=== PATIENT | male | born 1940 | race Caucasian/White ===

== ENCOUNTER 2017-05-18 11:31 | Day surgery (SDC) | payer OTHER ==
[2017-05-18] MEDS ORDERED: LR 1,000 ML IV ONE (12:23)
--- NOTE | 2017-05-18 12:26 | PDANEPAE ---
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 - Pulmonary History Hx COPD: No Hx Asthma/Reactive Airway Disease: No Hx Recent Upper Respiratory Infection: No Hx Oxygen in Use at Home: No Hx Sleep Apnea: Yes Sleep Apnea Screening Result - Last Documented: Positive - Neurologic History Hx Cerebrovascular Accident: No Hx Seizures: No Hx Dementia: No - Endocrine History Hx Diabetes: No Hypothyroid: No Hyperthyroid: No - Renal History Hx Renal Disorders: No - Liver History Hx Hepatic Disorders: No - Neurological & Psychiatric Hx Hx Neurological and Psychiatric Disorders: No - Cancer History Hx Cancer: No - Congenital Disorder History Hx Congenital Disorders: No - GI History GERD: mild Hx Gastrointestinal Disorders: No - Surgical History Prior Surgeries: EGD, ANE Review of Systems - Exercise capacity METS (RN): 4 METS ANE Patient History - Allergies Allergies/Adverse Reactions: Sulfa (Sulfonamide Antibiotics) Allergy (Verified 05/18/17 12:05) - Home Medications Home Medications: Atorvastatin Calcium 05/18/17 [Last Taken 05/17/17 22:00] Alyssa 05/18/17 [Last Taken 05/17/17] Lisinopril/Hctz 20/12.5MG 05/18/17 [Last Taken 05/17/17 22:00] Multivitamin 05/18/17 [Last Taken 05/17/17] [place] 3 500 Softgel 05/18/17 [Last Taken 05/17/17] VITAMIN D 05/18/17 [Last Taken 05/17/17] - NPO status NPO Since - Liquids (Date): 05/18/17 NPO Since - Liquids (Time): 10:00 NPO Since - Solids (Date): 05/17/17 NPO Since - Solids (Time): 21:00 - Anes Hx Anes Hx: no prior problems - Smoking Hx Smoking Status: Former smoker - Family Anes Hx Family Hx Anesthesia Complications: none ANE Labs/Vital Signs - Vital Signs Blood Pressure: 142/87 Heart Rate: 61 Respiratory Rate: 20 O2 Sat (%): 97 Height: 170.18 cm Weight: 84.302 kg ANE Physical Exam - Airway Neck exam: FROM Mallampati Score: Class 3 - Pulmonary Pulmonary: no respiratory distress - Cardiovascular Cardiovascular: regular rate and rhythym - ASA Status ASA Status: III ANE Anesthesia Plan Anesthesia Plan: GA w LMA
[2017-05-18] MEDS ORDERED: levOFLOXACIN 500 MG/DEXTROSE/100 ML BAG IV ONE (12:30)
[2017-05-18] MEDS ORDERED: PROPOFOL/EMULSION 500 MG/50 ML BOTTLE IV ONE (12:33)
[2017-05-18] MEDS ORDERED: INDOMETHACIN 50 MG SUPP PR PRN (12:35)
--- NOTE | 2017-05-18 12:35 | PDGENHP ---
History & Physical Chief Complaint: pancreatic cyst History of Present Illness: 76 year old male presents for evaluation of abnormal imaging. + panc cyst seen on imaging. Pertinent Past, Social, Family History: FaMHx: no hx of pancreatic cancer. SoHx : former smoker. Relevant Physical Exam: HEENT: anicteric. CV: RRR +s1s2 No m/r/g. Lungs: CTAB No w/r/r. Abd: soft, nt, + bs. No guarding or rebound Cardiorespiratory Assessment: ASA 3. Mall: 2
[2017-05-18] MEDS ORDERED: NS 500 ML IV SCH (12:45)
--- NOTE | 2017-05-18 12:46 | POSTOPPROG ---
Post Op Note Date of Operation: 05/18/17 Surgeon: Duncan Walker Anesthesia: IV Sedation Pre-op Diagnosis: pancreatic cyst Post-op Diagnosis: panc cyst, irregular Z-line ,gastritis Indication: panc cyst Procedure: EGD with Bx, EUS FNA Findings: + cyst in hop, gastritis Inf/Abcess present in the surg proc area at time of surgery?: No EBL: Minimal Specimen(s): + FNA of cyst gastritis irreg z-line gastric polyp
[2017-05-18] MEDS ORDERED: ONDANSETRON 4 MG/2 ML VIAL IVP PRN (12:52)
[2017-05-18] MEDS ORDERED: NALOXONE HCL 0.4 MG/ML INJ IVP PRN (12:52)
[2017-05-18] MEDS ORDERED: fentaNYL 100 MCG/2 ML INJ IVP PRN (12:52)
[2017-05-18] MEDS ORDERED: LIDOCAINE 2% 5 ML SDV ONE (13:03)
[2017-05-18] MEDS ORDERED: GLYCOPYRROLATE 0.2 MG/1 ML VIAL ONE (13:03)
[2017-05-18] MEDS ORDERED: PROPOFOL 200 MG/20 ML VIAL ONE (13:08)
[2017-05-18 13:39] VITALS: PULSE 96
[2017-05-18 14:18] VITALS: BP 128/82; RESP 16; TEMP 97.9; O2SAT 93
--- NOTE | 2017-05-18 14:25 | POSTANESTH ---
Post Anesthetic Evaluation Cardiovascular Status: Normal, Stable Respiratory Status: Normal, Stable Level of Consciousness/Mental Status: Can Participate in Eval Pain Control: Adequate, Prn Tx Ordered Nausea/Vomiting Control: Adequate, Prn Tx Ordered Complications Possibly Related to Anesthesia: None Noted
--- NOTE | 2017-05-18 18:49 | GPN ---
[f rep st] PROCEDURE NOTE DATE OF PROCEDURE: 05/18/2017 PROCEDURE: Esophagogastroduodenoscopy with biopsy, endoscopic ultrasound, fine needle aspiration. INDICATIONS: The patient is a 76-year-old male who had a recent CT scan which showed an enlarging cystic lesion in the pancreatic head. He presents for further evaluation and possible tissue acquisition. CONSENT: Risks, benefits, and alternatives of the procedure were discussed in great detail with the patient. Risks of infection, bleeding, perforation, sedation, and pancreatitis were discussed. All questions answered, and informed consent was obtained. MEDICATIONS: Propofol. Please see Anesthesiology for details. Levaquin 500 mg IV x 1. ESTIMATED BLOOD LOSS: Insignificant. ESOPHAGOGASTRODUODENOSCOPY EXAMINATION: The Olympus upper endoscope was introduced into the mouth and advanced to the esophagus. The proximal and mid esophagus was normal in appearance. An irregular Z-line was noted and biopsies were taken. The stomach was entered and closely examined, including retroflexed views of the angularis, cardia, and fundus. A moderate-sized hiatal hernia was noted. The mucosa in the antrum and the body of the stomach was erythematous in a patchy distribution. Biopsies taken. Along the greater curvature, several diminutive polyps were seen and were biopsied. The duodenal bulb and 2nd portion of the duodenum were normal in appearance. ENDOSCOPIC ULTRASOUND EXAMINATION: The Olympus linear echoendoscope was introduced into the mouth and advanced to the 2nd portion the duodenum. The pancreas was carefully examined from the uncinate process to the tail, where the spleen was seen. Hyperechoic foci were noted throughout the pancreas. Dilated side branches were also noted. The pancreatic duct wall was hyperechoic. In the head of the pancreas, the pancreatic duct was dilated to 4.9 mm. A 5.0cm x 4.1 cm cyst was seen. The cyst had irregular margins. The wall was not thick. Doppler was used to rule out intervening vessels. One transduodenal pass was made with a [employer] 25-gauge needle. Cytology was present and preliminary report was acellular debris. Another transduodenal pass was made with a 22-gauge needle. Approximately 3 cc of fluid was aspirated, which will be sent for CEA and amylase. Slides was made for mucin staining, and the rest was placed in Cyto[facility]yt. IMPRESSION: 1. Pancreatic cyst at head of pancreas, status post fine needle aspiration. Dilated main pancreatic duct Intraductal papillary mucinous neoplasm versus other? 2. Gastritis, status post biopsy. 3. Gastric polyp, status post biopsy. 4. Irregular Z-line, status post biopsy. RECOMMENDATIONS: 1. Follow up on FNA and biopsy results. 2. More recommendations once pathology is back. 3. Clear liquid diet till tomorrow. 4. Continue previous medications. 5. Ciprofloxacin 500mg PO BID x 3 days /[id number]/MODL MTDD
[2017-05-20 13:40] LABS: AMYLASE RESULT 676 U/L
== END 2017-05-18 15:32 | disposition home or self-care (01) ==
LOC: FSGY 11:31
PROVIDERS: ATTEND Internal Medicine Gastroenterology
PROC: 0DB58ZX Excision of Esophagus, Via Natural or Artificial Opening Endoscopic, Diagnostic (ICD-10-PCS; principal; 2017-05-18 13:00)
PROC: 0F9 Hepatobiliary System and Pancreas, Drainage (ICD-10-PCS; principal; 2017-05-18 13:00)
PROC: 0DB68ZX Excision of Stomach, Via Natural or Artificial Opening Endoscopic, Diagnostic (ICD-10-PCS; principal; 2017-05-18 13:00)
DX: K86.2 Cyst of pancreas (principal); Z87.891 Personal history of nicotine dependence; K29.70 Gastritis, unspecified, without bleeding; K31.7 Polyp of stomach and duodenum; I10 Essential (primary) hypertension
CPT/HCPCS: J1956; J2704